=== PATIENT | female | born 2000 | race Caucasian/White ===

== ENCOUNTER 2025-01-16 06:16 | Emergency (ER) | payer SELFPAY ==
--- OUTSIDE RECORDS SUMMARY | 2022-06-11 08:10 | XMS_ITS | Continuity of Care Document ---
Author Organization [facility] Address [address] [place] [address] Phone Care Team Providers Care Preventive Medicine Physician Name Role Phone Nathaly Romero NP Unavailable Unavailable Allergies, Adverse Reactions, Alerts Substance Reaction Status Criticality No Known Allergies Active No Inform ation Procedures Procedure Date RADEX WRST 2 VIEWS POSTOP FOLLOW-UP VISIT RADEX WRST 2 VIEWS Wrist Long and Short Splint POSTOP FOLLOW-UP VISIT RADEX WRST 2 VIEWS POSTOP FOLLOW-UP VISIT RADEX WRST COMPL MINIMUM 3 VIEWS 2022 Splint supplies misc Special casting material Keystone tape Cast sup sht arm adult fbrgl TX OF DISTAL RADIAL OR EPIPHYSEAL SEP W/ OR W/O ULNAR STYLOID FX OFFICE/OUTPATIENT VISIT NEW Advance Directives Directive Yes / No Effective Date File Name No Information Encounters Encounter Description Practice Location Reason(s) For Visit Diagnoses Date Provider Providers Copied on Encounter [facility] , [address], [place], [address], [place] [phone] [facility] Unspecified fracture of the lower end of right radius, subsequent encounter for closed fracture with routine healing 3 Heather Andersen. [address], [place], [place], [id number] , [place]. tel: [phone] Referring Provider: Nathaly Walker, [address], [place], [address] . tel:[phone] [facility] , [address], [place], [address], [place] tel:[phone] [facility] Unspecified fracture of the lower end of right radius, subsequent encounter for closed fracture with routine healing 3 Heather Andersen. [address], [place], [place], [id number] , [place]. tel: [phone] Referring Provider: Nathaly Walker, [address], [place], [address] . tel:[phone] [facility] , [address], [place], [address], [place] tel:[phone] [facility] Unspecified fracture of the lower end of right radius, subsequent encounter for closed fracture with routine healing 3 Graham Reyeshan. [address], [place], [place], [id number] . tel: [phone] Referring Provider: Nathaly Walker, [address], [place], [address] . tel:[phone] OFFICE/OUTPAT IENT VISIT NEW [facility] , [address], [place], [address], [place] tel:[phone] [facility] Closed fracture of distal end of right radius, unspecified fracture morphology, initial encounter 3 Heather Andersen. [address], [place], [place], [id number] , [place]. tel: [phone] Referring Provider: Nathaly Walker, [address], [place], [address] . tel:[phone] Family History Family Member Type Diagnosis Age At Onset Mother Problem Diabetes mellitus Payers Payer name Insurance type Covered republican ID Authoriza tion(s) [facility] Choice/Choice Plus E2 OT [id number] Social History Type Description Quantity Date Captured Comments Alcohol Use Details No Caffeine Use Details Unknown Tobacco Use Status Cigarette smoker Smoking Status Current every day smoker 2022 Sex Female Chief Complaint And Reason For Visit No Information Reason For Referral Reason For Referral No Information Plan Of Treatment Date Type Action Status Goal Tobacco cessation counseling completed Referral Ordered: RADEX WRST 2 VIEWS RT wrist ordered Referral Ordered: RADEX WRST COMPL MINIMUM 3 VIEWS RT wrist ordered History Of Present Illness Encounter Date Complaint History Of Prese nt Illness No Information Functional Status Date Functional Assessmen t No Information Instructions Date Instruction Additional Infor mation No Information Assessments Type Assessment Date assessment Unspecified fracture of the lower end of right radius, subsequent encounter for closed fracture with routine healing Patient Care Teams Name Effective Dates (start - stop) Status Members No Information
[2025-01-16 06:20] VITALS: BP 112/79; PULSE 93; RESP 18; TEMP 36.9; O2SAT 100
[2025-01-16 06:57] LABS: Hematocrit 43.7 % (37.0-47.0); Hemoglobin 14.3 g/dL (12.0-15.0); Immature Granulocyte Percent A 0.6 % (0-0.5); Lymphocytes Absolute Auto 2.09 K/mm3 (0.9-3.2); Mean Corpuscular HGB Conc 32.7 g/dl (32-36); Mean Corpuscular Hemoglobin 30.3 pg (26-34); Mean Corpuscular Volume 92.6 fl (80-100); Nucleated Red Blood Cells Absolute Auto 0.000 K/mm3 (0.0-0.012); Nucleated Red Blood Cells Perc 0.0 % (0.0-0.2); Platelet Count Result 220 k/mm3 (150-375); Red Blood Count 4.72 M/mm3 (4.2-5.4); White Blood Count 4.7 K/mm3 (4.5-10.0)
[2025-01-16 06:59] LABS: Add Urine Microscopic? NO; Appearance Urine Clear (Clear); Glucose Urine UA Negative (Negative); Leukocyte Esterase Ur Negative LEU/UL (Negative); Nitrate Urine Negative (Negative); Specific Grav Ur 1.009 (1.001-1.035)
[2025-01-16 07:17] LABS: Alanine Aminotransferase 15 U/L (6-35); Albumin Level 4.7 g/dL (3.5-5.1); Alkaline Phosphatase 73 U/L (38-126); Anion Gap 9 mmol/L (4-12); Aspartate Amino Transferase 25 U/L (14-36); Bilirubin,Total 0.8 mg/dL (0.2-1.3); Blood Urea Nitrogen 11 mg/dL (7-17); Calcium 9.0 mg/dL (8.4-10.2); Carbon Dioxide 26 mmol/L (22-30); Chloride 106 mmol/L (98-107); Estimated CRCL calculation 86 ml/min; Estimated Glomerular Filt Rate > 60; Glucose 85 mg/dL (65-110); Magnesium 2.2 mg/dL (1.6-2.3); Potassium 3.7 mmol/L (3.4-5.0); Sodium 141 mmol/L (137-145); Total Protein 7.8 g/dL (6.3-8.2)
[2025-01-16 07:19] LABS: Cannabinoid Screen Urine Negative (Negative)
--- NOTE | 2025-01-16 07:35 | ED_ITS ---
HPI - General Adult General Chief complaint: Altered Mental Status Stated complaint: period of amnesia Time Seen by Provider: 01/16/25 07:10 History of Present Illness HPI narrative: Patient is a 24-year-old female who presents ER after waking up on the side of the road. Patient reports that she had been at a establishment called [facility] in [facility] and had had a few beers and 2 shots. She then left to go home. She remembers pulling out the parking lot and then she loses about 3 hours of time. She was found walking on the side of the [place] 3 miles from where she had parked her car on the side of the interstate. She actually called 911 asking for help and that is how she was found. She has no recollection of being in her car since she left the bar and does not remember walking along the interstate. She does recall EMS putting an IV in her arm. She has no history of seizure disorder. No additional drug use. Review of Systems 2 Review of Systems: All systems reviewed & are unremarkable except as noted in HPI and below Constitutional: Constitutional: Reports no additional constitutional complaints ENT: Reports system reviewed and no additional complaints, except as documented Cardiovascular: Cardiovascular: Reports no additional cardiovascular complaints Respiratory: Respiratory: Reports no additional respiratory complaints Gastrointestinal: Gastrointestinal: Reports no additional gastrointestinal complaints Musculoskeletal: Musculoskeletal: Reports no additional musculoskeletal complaints Neurologic: Reports system reviewed and no additional complaints, except as documented PMFSH Past Medical History Medical History (Updated 01/16/25 @ 07:42 by Raf Berrios MD) Healthy female adult Surgical History Surgical History (Updated 01/16/25 @ 07:37 by Raf Berrios MD) No history of previous surgery Social History Social History (Updated 01/16/25 @ 07:38 by Raf Berrios MD) Social History: combat medic Exam 2 Narrative: GENERAL: Well-appearing, well-nourished, and in no acute distress. HEAD: Normocephalic, atraumatic. EYES: PERRL and EOMI. ENT: Mucous membranes moist. CHEST: Clear to auscultation. No respiratory distress. Bruising to the breasts that patient reports is from training. HEART: Regular rate and rhythm. Normal peripheral pulses. ABDOMEN: Soft, nontender, nondistended. EXTREMITIES: Normal range of motion. No edema. SKIN: Warm, dry, no rash. NEURO: Alert and oriented x3. PSYCH: Normal mood and affect. Course Course Emergency Course: Patient is awake alert orient x3. No evidence of seizure. She is incredibly pleasant and forthcoming. Her alcohol level is elevated which is consistent with her alcohol consumption that she reported. It is possible that she may have had a drug slipped into a drink at the bar. I have added on a Rohypnol and GHB test. She is appropriate for discharge home and she is arranging herself a ride. Vital Signs Vital signs: Vital Signs Temperature 98.4 F 01/16/25 06:20 Pulse Rate 93 01/16/25 06:20 Respiratory Rate 18 01/16/25 06:20 Blood Pressure 112/79 01/16/25 06:20 Pulse Oximetry 100 01/16/25 06:20 Temperature 98.4 F 01/16/25 06:20 Pulse Rate 93 01/16/25 06:20 Respiratory Rate 18 01/16/25 06:20 Blood Pressure 112/79 01/16/25 06:20 Pulse Oximetry 100 01/16/25 06:20 Medical Decision Making Vital Signs Vital Signs: Vital Signs Temperature 98.4 F 01/16/25 06:20 Pulse Rate 93 01/16/25 06:20 Respiratory Rate 18 01/16/25 06:20 Blood Pressure 112/79 01/16/25 06:20 Pulse Oximetry 100 01/16/25 06:20 Temperature 98.4 F 01/16/25 06:20 Pulse Rate 93 01/16/25 06:20 Respiratory Rate 18 01/16/25 06:20 Blood Pressure 112/79 01/16/25 06:20 Pulse Oximetry 100 01/16/25 06:20 Lab Data 01/16/25 06:47 01/16/25 06:47 Labs: Lab Results 01/16/25 01/16/25 Range/Units 06:47 06:48 WBC 4.7 (4.5-10.0) K/mm3 RBC 4.72 (4.2-5.4) M/mm3 Hgb 14.3 (12.0-15.0) g/dL Hct 43.7 (37.0-47.0) % MCV 92.6 (80-100) fl MCH 30.3 (26-34) pg MCHC 32.7 (32-36) g/dl RDW 13.9 (11.5-14.5) % Plt Count 220 (150-375) k/mm3 MPV 10.3 (7.4-10.4) fl Immature Gran % (Auto) 0.6 H (0-0.5) % Neut % (Auto) 44.5 L (45.5-73.1) % Lymph % (Auto) 44.3 H (18.3-44.2) % Maury % (Auto) 7.4 (2.6-8.5) % Eos % (Auto) 1.7 (0-4.4) % Baso % (Auto) 1.5 H (0.2-1.2) % Lymph # (Auto) 2.09 (0.9-3.2) K/mm3 Maury # (Auto) 0.4 (0.1-0.6) K/mm3 Eos # (Auto) 0.1 (0-0.3) K/mm3 Baso # (Auto) 0.1 (0.0-0.1) K/mm3 Abs Immat Gran (auto) 0.03 (0.00-0.031) K/mm3 Absolute Neuts (auto) 2.1 (1.3-6.7) K/mm3 Absolute Nucleated RBC 0.000 (0.0-0.012) K/mm3 Nucleated RBC % 0.0 (0.0-0.2) % Sodium 141 (137-145) mmol/L Potassium 3.7 (3.4-5.0) mmol/L Chloride 106 (98-107) mmol/L Carbon Dioxide 26 (22-30) mmol/L Anion Gap 9 (4-12) mmol/L BUN 11 (7-17) mg/dL Creatinine 0.84 (0.7-1.0) mg/dL Estim Creat Clear Calc 86 ml/min Estimated GFR > 60 (59 - ) Glucose 85 (65-110) mg/dL Calcium 9.0 (8.4-10.2) mg/dL Magnesium 2.2 (1.6-2.3) mg/dL Total Bilirubin 0.8 (0.2-1.3) mg/dL AST 25 (14-36) U/L ALT 15 (6-35) U/L Alkaline Phosphatase 73 (38-126) U/L Total Protein 7.8 (6.3-8.2) g/dL Albumin 4.7 (3.5-5.1) g/dL Urine Color Yellow (Yellow) Urine Appearance Clear (Clear) Urine pH 6.0 (5.0-9.0) Ur Specific [place] 1.009 (1.001-1.035) Urine Protein Negative (Negative) mg/dL Urine Glucose (UA) Negative (Negative) mg/dL Urine Ketones Negative (Negative) mg/dL Ur Blood (Man) Negative (Negative) Urine Nitrate Negative (Negative) Urine Bilirubin Negative (Negative) Urine Urobilinogen 0.2 (<2.0) mg/dL Leukocyte Esterase Rfl Negative (Negative) RASHAWN/UL CSF Angiotensin Conv Enz Pending Urine Opiates Screen Negative (Negative) Urine Methadone Screen Negative (Negative) Ur Barbiturates Screen Negative (Negative) Ur Phencyclidine Scrn Negative (Negative) Ur Amphetamine Screen Negative (Negative) U Benzodiazepines Scrn Negative (Negative) Ur Flunitrazepam Scrn Pending Urine Cocaine Screen Negative (Negative) U Cannabinoids Screen Negative (Negative) Ethyl Alcohol 129 (<10) mg/dL Discharge Plan Discharge Clinical Impression: Altered mental status, Alcohol use Patient Disposition: Home Condition: Stable Additional Instructions: You have to tests that are pending. You may obtain the results through the patient portal. Return to the ER if you have fever over 101F, you cannot keep down food/water, you lose consciousness, or have additional concerns. Patient Language: Pashto Follow-up/Referrals: Lane Andrews MD [Physician, Family Practice] - 1 Week
[2025-01-16 07:44] VITALS: O2SAT 100
[2025-01-16 07:46] LABS: BEDSIDEPREGUCG Negative (Negative)
--- OUTSIDE RECORDS SUMMARY | 2025-01-16 07:46 | XMS_ITS | Clinical Summary ---
Author Organization [facility] Address [address] [place] [address] Care Team Providers Care Medical Staffing Coordinator Name Role Phone Given, None Primary Care Provider Unavailabl e Source Comments [facility],non-owned Affiliates and Associated Physician Practices is amultiple site organization consisting of ambulatory clinics and hospital sitesin [place], [place], [place] and [place]. This disclosure is being madepursuant to the Care Everywhere program and may not contain all information available regarding this patient. Last updated 18.[facility] Allergies No known active allergies Medications * Be aware that medications may not be up to date on this document. Alwaysverify current medications with the patient. HYDROcodone-acet aminophen ([place]) 5-325 MG tabletIndication s:Pyelonephritis Take 1 (one) tablet by mouth every 6 hours as needed 12 tablet 05/17/2023 Active Active Problems Problem Noted Date Diagnosed Date Pyelonephritis 05/15/2023 RLQ abdominal pain 05/15/2023 Flank pain 05/15/2023 Sepsis, due to unspecified o rganism, unspecified whether acute organ dysfunction present 05/15/2023 Social History Tobacco Use Types Packs/Day Years Used Date Smoking Tobacco: Former Cigarettes Smokeless Tobacco: Never Tobacco Cessation:Counseling Given: Yes Alcohol Use Standard Drinks/Week Comments Yes 2 (1 standard drink = 0.6 oz pur e alcohol) AUDIT-C Answer Date Recorded Q1: How often do you have a drink containing alc ohol? 2-4 times a month 05/15/2023 Q2: How many drinks containi ng alcohol do you have on a typical day when you are drinking? 3 or 4 05/15/2023 Q3: How often do you have si x or more drinks on one occasion? Never 05/15/2023 Overall Financial Resource Strain (CARDIA) Answe r Date Recorded How hard is it for you to pa y for the very basics like food, housing, medical care, and heating? Not hard at all 05/15/2023 [facility] - Occupational Stress Questionnaire Answer Date Recorded Do you feel stress - tense, restless, nervous, or anxious, or unable to sleep at night because your mind is troubled all the time - these days? Not at all 05/15/2023 Hunger Vital Sign Answer Date Recorded Within the past 12 months, y ou worried that your food would run out before you got the money to buy more. Never true 05/15/19 24 Within the past 12 months, t he food you bought just didn't last and you didn't have money to get more. Never true 05/15/2023 PRAPARE - Transportation Answer Date Re corded In the past 12 months, has l ack of transportation kept you from medical appointments or from getting medications? No 04/22 In the past 12 months, has l ack of transportation kept you from meetings, work, or from getting things needed for daily living? No 05/15/2023 Housing Stability Vital Sign Answer Yunier e Recorded In the last 12 months, was t here a time when you were not able to pay the mortgage or rent on time? No 05/15/2023 In the last 12 months, how many places have you lived? 3 05/15/2023 In the last 12 months, was t here a time when you did not have a steady place to sleep or slept in a mcfp (including now)? No 05/15/2023 Comments No Sex and Gender Information Value Date Recorded Sex Assigned at Not on file Legal Sex Female 1:30 PM CDT Gender Identity Not on file Sexual Orientation Not on file Last Filed Vital Signs Vital Sign Reading Time Taken Comments Blood Pressure 114/66 05/17/2023 7:57 AM MAINTENANCE ADVISOR Pulse 112 05/17/2023 9:44 AM MAINTENANCE ADVISOR Temperature 36.6 C (97.9 F) 05/17/2023 7:57 AM MAINTENANCE ADVISOR Respiratory Rate 14 05/17/2023 2:54 AM MAINTENANCE ADVISOR Oxygen Saturation 98% 05/17/2023 7:57 AM MAINTENANCE ADVISOR Inhaled Oxygen Concentration - - Weight 62.7 kg (138 lb 3.2 oz) 05/17/2023 10:23 AM MAINTENANCE ADVISOR Height 170.2 cm (5' 7) 05/16/2023 11:56 PM MAINTENANCE ADVISOR Body Mass Index 21.65 05/16/2023 11:56 PM MAINTENANCE ADVISOR Plan of Treatment Health Maintenance Due Date Last Done Comments HIV SCREENING 2017 HPV VACCINE (1 - 3-dose series) 2017 CHLAMYDIA/GONORRHEA SCREENING 2018 MENINGOCOCCAL (Group B) VACCINE SHARED DECISION-MAKING (1 of 2 - Standard) 2018 HEPATITIS C SCREENING 03/18/2020 DTAP/TDAP/TD VACCINES (1 - Tdap) 2021 HEPATITIS B VACCINE (1 of 3 - 19+ 3-dose series) 2021 PAP SMEAR 2023 DEPRESSION SCREENING 04/21/2024 COVID-19 VACCINE (2 - 2024-2 6 season) 2024 07/25/2020 INFLUENZA VACCINE (#1) 2024 8, 01/21/2014 ZOSTER VACCINE (1 of 2) 2052 HIB VACCINE Aged Out No longer eligi ble based on patient's age to complete this topic MENINGOCOCCAL GROUPS A/C/Y/W VACCINE Aged Out No longer eligible b ased on patient's age to complete this topic PNEUMOCOCCAL VACCINE Aged Out No long er eligible based on patient's age to complete this topic Insurance [facility] Advance Directives * Full Code (Latest Code Status on File) Date Activated Date Inactivated Comments 05/15/2023 4:30 PM 05/17/2023 11:45 AM Care Teams Medical Staffing Coordinator Relationship Specialty Start Date End Date Given, None PCP - General 05/15/23
--- OUTSIDE RECORDS SUMMARY | 2025-01-16 07:46 | XMS_ITS | Encounter Summary ---
Author Organization [facility] Address [address] [place] [address] Care Team Providers Care Tool And Machine Maintainer Name Role Phone Erlinda Stephens NP Primary Care Provider [phone] Tati Marcus MD Primary Care Provider [phone] None, Provider MD Primary Care Provider Unavaila ble Encounter Details Date Type Department Care Team (Late st Contact Info) Description 09/26/[address] [facility] [address] [place], [place] [id number] , Generic Conversion, Social History Tobacco Use Types Packs/Day Years Used Date Smoking Tobacco: Never Assessed Comments Unknown Sex and Gender Information Value Date Recorded Sex Assigned at Not on file Legal Sex Female 6:49 PM CDT Gender Identity Not on file Sexual Orientation Not on file documented as of this encounter Plan of Treatment Not on file documented as of this encounter Visit Diagnoses Not on filedocumented in this encounter Additional Health Concerns Infection Onset Date Last Indicated Resolved Time COVID-19 Rule Out 10/23/2023 10/23/2023 10/23/2023 9:40 PM CDT documented as of this encounter Care Teams Tool And Machine Maintainer Relationship Specialty Start Date End Date Erlinda Stephens NP [address] [place] [address] PCP - General FAMILY PRACTICE 02/09/19 06/08/19 Tati Marcus MD [address] [place] [address] PCP - General PEDIATRICS 06/09/19 10/22/23 None, Provider, PCP - General UNKNOWN PHYSICIAN SPECIALTY 10/23/23 documented as of this encounter
[2025-01-16 07:59] VITALS: BP 126/84; PULSE 84; RESP 16; O2SAT 99
== END 2025-01-16 08:26 | disposition home or self-care (01) ==
PROVIDERS: Emergency Medicine; Emergency Provider Emergency Medicine
DX: R41.82 Altered mental status, unspecified (principal); F10.90 Alcohol use, unspecified, uncomplicated; Y90.6 Blood alcohol level of 120-199 mg/100 ml
CPT/HCPCS: 36415; 80053; 80307; 81003; 81025; 82077; 83735; 85025; 99283